=== PATIENT | female | born 1990 | race Caucasian/White ===

== ENCOUNTER 2016-10-25 10:36 | Day surgery (SDC) | payer OTHER, MEDICARE, MEDICAID ==
[~2016-10-25 10:36] MED LIST: ACETAMINOPHEN 1000MG/100 ML PREMIX IV ONE; FAMOTIDINE 20MG TABLET PO ONE; MECLIZINE 25 MG TABLET PO ONE; METOCLOPRAMIDE 10 MG TABLET PO ONE
[2016-10-25] MEDS ORDERED: BUPIVACAINE 0.25% W/EPI MPF 30ML VIAL IVP ONE (15:23)
[2016-10-25] MEDS ORDERED: HYDROMORPHONE HCL 2 MG/ML VIAL IV ONE ×2 (15:23→15:32)
[2016-10-25] MEDS ORDERED: HYDROCODONE/APAP 5/325MG TABLET PO ONE (15:23)
[2016-10-25] MEDS ORDERED: PROPOFOL 10 MG/ML VIAL IV ONE (15:32)
[2016-10-25] MEDS ORDERED: LIDOCAINE 2% MDV (20MG/ML) 20ML VIAL IV ONE (15:32)
[2016-10-25] MEDS ORDERED: KETOROLAC 30 MG/ML VIAL IVP ONE (15:32)
[2016-10-25] MEDS ORDERED: ROCURONIUM BROMIDE 50MG/5ML VIAL IV ONE (15:32)
[2016-10-25] MEDS ORDERED: FENTANYL PF 100MCG/2ML VIAL IV ONE (15:32)
[2016-10-25] MEDS ORDERED: MIDAZOLAM HCL 2MG/2ML VIAL IV ONE (15:32)
[2016-10-25] MEDS ORDERED: SUCCINYLCHOLINE 20 MG/ML 10ML IVP ONE (15:32)
[2016-10-25] MEDS ORDERED: NEOSTIGMINE 1 MG/1 ML,10ML VIAL IV ONE (15:32)
[2016-10-25] MEDS ORDERED: GLYCOPYRROLATE 0.2 MG/ML ML IV ONE (15:32)
[2016-10-25] MEDS ORDERED: DEXAMETHASONE 4 MG/ML 1ML VIAL IVP ONE (15:32)
[2016-10-25] MEDS ORDERED: ONDANSETRON HCL IV 4 MG/2 ML VIAL IVP ONE (15:32)
--- NOTE | 2016-10-25 16:07 | Operative Note ---
DATE OF PROCEDURE: 10/25/2016. SURGEON: Corwin Goins D.O. REFERRING PHYSICIAN: Becky Elam M.D. PREOPERATIVE DIAGNOSIS: CHRONIC RIGHT UPPER QUADRANT PAIN WITH GALLBLADDER SLUDGE. POSTOPERATIVE DIAGNOSIS: CHRONIC RIGHT UPPER QUADRANT PAIN WITH GALLBLADDER SLUDGE. PROCEDURE: Laparoscopic cholecystectomy. INDICATIONS: The patient is a 25-year-old female who presented to the clinic with her family regarding ongoing right subcostal postprandial pain. She states that she has been dealing with this for quite some time. She did undergo an ultrasound as well as upper endoscopy. The ultrasound revealed gallbladder sludge and no evidence of acute cholecystitis. She felt this was getting worse and had extreme fatty food intolerance and nausea. She came in inquiring about cholecystectomy. I let her know that I could not guarantee results. Part of what she is experiencing could be some biliary colic, but this could be multi-factorial as well. I gave her options of cholecystectomy versus ongoing medical management. She desired surgical intervention. Her risks include but are not limited to bleeding, infection, ductal injury, possible conversion to open, postoperative bile leak, and nonresolution of her symptoms. She understood this fully. Therefore, consent was signed and questions were answered. DESCRIPTION OF PROCEDURE: She was taken to the operating room and was placed in the supine position. General anesthesia was administered per the Department of Anesthesia. The patient's abdomen was prepped and draped in the usual fashion. The infraumbilical region was anesthetized with a total of 3.0 mL of 0.25% Sensorcaine with epinephrine. A 2.0-cm infraumbilical incision was made. This was carried down to the anterior rectus fascia. This was incised. Ty clamps were placed, and the fascial edges were brought up into the wound. Stay sutures of 0 Vicryl were placed. The posterior rectus sheath was identified and incised. The peritoneal cavity was entered bluntly. At this time a 10-mm blunt Freed port was placed and adequate pneumoperitoneum was established. Under direct visualization, an additional 5.0-mm epigastric and two 5.0-mm right subcostal ports were placed. Gentle examination was done. Both lobes of the liver were smooth and glistening. There was no obvious inflammation around the gallbladder. There were no adhesions. On external examination the small and large bowel appeared normal. At this time the gallbladder was retracted in a cephalad and lateral direction opening up the angle of Calot. The hepatocystic triangle was thoroughly dissected out. Due to the paucity of visceral fat, I could clearly see the common bile duct medial. The cystic duct and the cystic artery were completely dissected out in a 360-degree fashion. There was no aberrant anatomy. No posterior ductal structures. Each one was doubly clipped and cut in a standard fashion. The gallbladder was then taken off of the liver bed with the [place] Harmonic. The gallbladder might have been a bit thickened in the mid portion. At this time, this was extracted infraumbilically. The right upper quadrant was then rechecked and was found to be hemostatic. No bleeding, no bile leak, and no bowel injury were noted. The patient was leveled out and pneumoperitoneum was released. All ports were removed. The fascia was closed with 0 Vicryl in [id number] fashion. The skin and all four ports were closed with 4-0 Vicryl. She was taken to Recovery in satisfactory condition. Final pathology is pending. FINDINGS AT THE TIME OF SURGERY: CHRONIC CHOLECYSTITIS. Corwin Goins D.O. Date Time cc: Becky Elam M.D. JOB NUMBER: [id number] MTDD
== END 2016-10-25 14:47 | disposition home or self-care (01) ==
LOC: SUR 10:36
PROVIDERS: ATTEND Surgery
DX: K80.10 Calculus of gallbladder with chronic cholecystitis without obstruction (principal); Q79.6 Ehlers-Danlos syndromes; J45.909 Unspecified asthma, uncomplicated; I95.9 Hypotension, unspecified
CPT/HCPCS: 47562; 00790; 84703; J1885; J2405; J3010; J1170; J0330; J2710

== ENCOUNTER 2016-11-04 21:36 | Emergency (ER) | payer OTHER, MEDICARE, MEDICAID ==
[2016-11-04] MEDS ORDERED: ONDANSETRON 4 MG ODT TABLET SL ONE (22:14)
--- NOTE | 2016-11-04 22:14 | Emergency Department Record ---
History of Present Illness - General Chief Complaint: Wound, check Stated Complaint: DOG JUMPED ON INCISIONS Time Seen by Provider: 11/04/16 22:08 Source: Patient - History of Present Illness Initial Comments: The patient states that she had a lap gavi on 10-25-[address] Goins. Just over 24 hours ago her 45 pound dog jumped right on the surgical incision area. Shortly afterwards her abdomen began hurting more. When she went to bed 2 hours go, she took a norco which helped her at the time. Throughout the day earlier today she was in in more pain than usual. When her dad found out about this tonight, he was concerned and brought her here. She has taken a norco about 2 hours ago and states she feels better, but is still in more pain than she has been prior to the dog jumping on her stomach. She states she is nauseated but has not vomited. She is passing gas and denies any distention in her abdomen. She states she was due to be recheck by Dr. Goins on the . Onset/Timin -: Hour(s) Initial Visit For: Other Returns Today for: Other Symptoms Since Prior Visit: Worsening pain Associated Symptoms: None - Related Data Home Medications Medication Instructions Recorded Confirmed Last Taken Fludrocortisone Acetate 0.1 mg PO QHS 07/29/14 11/04/16 08/29/16 [Fludrocortisone Acetate] Gabapentin [Gabapentin] 1 - 2 cap PO QHS 07/29/14 11/04/16 1 Day Ago Ondansetron [Zofran Odt] 4 mg PO Q6HR PRN 07/29/14 11/04/16 1 Day Ago Norethindrone [Radha] 0.35 mg PO DAILY 10/08/14 11/04/16 08/30/16 Diclofenac Sodium [Pennsaid] 112 gm TP DAILY 08/29/16 11/04/16 08/30/16 Tramadol HCl 50 mg PO Q6H 08/29/16 11/04/16 Unknown Hydrocodone/Acetaminophen 1 - 2 tab PO Q6H PRN 11/04/16 11/04/16 Unknown [Hydrocodon-Acetaminophen 5-325] Previous Rx's Medication Instructions Recorded Levalbuterol Tartrate [Xopenex Hfa] 15 gm IH Q8HR PRN #1 inh 01/08/15 Hydrocodone/Acetaminophen [[place] 1 tab PO Q8H PRN #6 tab 11/04/16 5mg/325mg] Allergies Allergy/AdvReac Type Severity Reaction Status Date / Time gluten Allergy Severe ABDOMINAL Verified 08/30/16 15:35 PAIN shellfish derived Allergy Severe ANAPHYLAXIS Verified 08/30/16 15:35 povidone-iodine Allergy Intermediate itchy rash Unverified 10/14/16 13:32 [From Betadine] with blisters soap [From Betadine] Allergy Intermediate itchy rash Unverified 10/14/16 13:32 with blisters soy Allergy Intermediate HIVES Verified 08/30/16 15:35 bamboo Allergy Mild BLISTERS Verified 08/30/16 15:35 Latex, Natural Rubber Allergy Mild BLISTERS Verified 08/30/16 15:35 nickel [Nickel] Allergy Mild BLISTERS Verified 08/30/16 15:35 albuterol AdvReac Severe TACHYCARDIA Verified 08/30/16 15:35 Travel Screening - Travel/Exposure Within Last 30 Days Have you traveled within the last 30 days?: No Review of Systems Reviewed: No additional complaints except as noted below Constitutional: Reports: As per HPI. Denies: Chills, Fever, Malaise, Night sweats, Weakness, Weight change Eyes: Reports: As per HPI. Denies: Eye discharge, Eye pain, Photophobia, Vision change ENT: Reports: As per HPI. Denies: Congestion, Dental pain, Ear pain, Epistaxis , Hearing loss, Throat pain Respiratory: Reports: As per HPI. Denies: Cough, Dyspnea, Hemoptysis, Stridor, Wheezes Cardiovascular: Reports: As per HPI. Denies: Arrhythmia, Chest pain, Dyspnea on exertion, Edema, Murmurs, Orthopnea, Palpitations, Paroxysmal nocturnal dyspnea, Rheumatic Fever, Syncope Endocrine: Reports: As per HPI. Denies: Fatigue, Heat or cold intolerance, Polydipsia, Polyuria Gastrointestinal: Reports: As per HPI. Denies: Abdominal pain, Constipation, Diarrhea, Hematemesis, Hematochezia, Melena, Nausea, Vomiting Genitourinary: Reports: As per HPI. Denies: Abnormal menses, Discharge, Dyspareunia, Dysuria, Frequency, Hematuria, Incontinence, Retention, Urgency Musculoskeletal: Reports: As per HPI. Denies: Arthralgia, Back pain, Gout, Joint swelling, Myalgia, Neck pain Skin: Reports: As per HPI. Denies: Bruising, Change in color, Change in hair/ nails, Lesions, Pruritus, Rash Neurological: Reports: As per HPI. Denies: Abnormal gait, Confusion, Headache, Numbness, Paresthesias, Seizure, Tingling, Tremors, Vertigo, Weakness Psychiatric: Reports: As per HPI. Denies: Anxiety, Auditory hallucinations, Depression, Homicidal thoughts, Suicidal thoughts, Visual hallucinations Hematological/Lymphatic: Reports: As per HPI. 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 - GI Hx GI Disorders: Yes Hx Abdominal Pain: Yes Hx Reflux: Yes Hx Nausea/Vomiting: Yes - Hx Genitourinary Disorders: Yes Hx Kidney Stones: Yes - ENDOCRINE Hx Endocrine Disorders: No - MUSCULOSKELETAL Hx Musculoskeletal Disorders: Yes Comment:: jc-danlos collagen disorder - PSYCH Hx Psych Problems: No - HEMATOLOGY/ONCOLOGY Hx Hematology/Oncology Disorders: Yes Hx Anemia: Yes (controlled) Comment:: jc danlos: collagen disorder Family Medical History Any Significant Family History?: Yes Hx Cancer: Grandparents Physical Exam - General General Appearance: Alert, Oriented x3, Cooperative, No acute distress - Head Head exam: Normal inspection - Eye Eye exam: Normal appearance, PERRL Pupils: Normal accommodation - ENT ENT exam: Normal exam, Mucous membranes moist, Normal external ear exam, Normal orophraynx, TM's normal bilaterally Ear exam: Normal external inspection. negative: External canal tenderness Nasal Exam: Normal inspection. negative: Discharge, Sinus tenderness Mouth exam: Normal external inspection, Tongue normal Teeth exam: Normal inspection. negative: Dental caries Throat exam: Normal inspection. negative: Tonsillar erythema, Tonsillar exudate - Neck Neck exam: Normal inspection, Full ROM. negative: Tenderness - Respiratory Respiratory exam: Normal lung sounds bilaterally. negative: Respiratory distress - Cardiovascular Cardiovascular Exam: Regular rate, Normal rhythm, Normal heart sounds - GI/Abdominal GI/Abdominal exam: Soft, Normal bowel sounds, Tenderness (tenderness mostly at periumbilical region. Incisions clean and dry and steri-stripped.). negative: Distended, Rebound, Rigid - Rectal Rectal exam: Deferred - exam: Deferred - Extremities Extremities exam: Normal inspection, Full ROM, Normal capillary refill. negative: Tenderness - Back Back exam: Reports: Normal inspection, Full ROM. Denies: Muscle spasm, Rash noted, Tenderness - Neurological Neurological exam: Alert, Normal gait, Oriented X3, Reflexes normal - Psychiatric Psychiatric exam: Normal affect, Normal mood - Skin Skin exam: Dry, Intact, Normal color, Warm Course Vital Signs 11/04/16 21:46 Temperature 97.9 F Pulse Rate [ 104 H Pulse Ox Probe] Respiratory 18 Rate Blood Pressure 115/73 [Left Arm] Pulse Ox 100 - Reevaluation(s) Reevaluation #1: Discussed case with Dr. Goins who is familiar with patient and her family. He recommends keeping her next week appointment, giving her a few norco and have her transition into motrin when possible. 11/04/16 23:47 Medical Decision Making - Management Options MDM Management: No Additional Work-up Planned - Data Complexity MDM Data: Labs Ordered and/or Reviewed - Lab Data Result diagrams: 11/04/16 22:52 11/04/16 22:52 Disposition Disposition: Discharge Clinical Impression: Postoperative abdominal pain Disposition: Home, Self-Care Condition: (1) Good Instructions: Wound Healing and Your Diet (ED) Additional Instructions: Take norco as directed for severe pain. Motrin as directed for mild to moderate pain. Follow up with Dr. Goins as previously arranged next week. Prescriptions: Hydrocodone/Acetaminophen [[place] 5mg/325mg] 1 tab PO Q8H PRN #6 tab PRN Reason: Pain - General Forms: Patient Portal Access
[2016-11-04 23:10] LABS: BASO % 0.2 % (0-6); GRAN % 59.5 % (47-80); HEMATOCRIT 36.2 % (35.0-47.0); HEMOGLOBIN 12.3 gm/dl (11.6-16.0); LYMPH % 29.8 % (16-45); MEAN CORPUSCULAR HEMOGLOBIN 29.6 pg (27-33); MEAN PLATELET VOLUME 10.6 fl (7.4-10.4); MONO % 7.5 % (0-9); PLATELET COUNT 226 K/uL (130-400); RED BLOOD COUNT 4.16 M/uL (3.80-5.40); RED CELL DISTRIBUTION WIDTH 13.9 % (11.5-14.5); WHITE BLOOD COUNT W/O DIFF 5.3 K/uL (4.2-12.2)
[2016-11-04 23:25] LABS: ANION GAP 15.6 (7-16); BLOOD UREA NITROGEN 12 mg/dL (7-17); CARBON DIOXIDE 25.4 mmol/L (22-30); CREATININE 0.6 mg/dL (0.52-1.04); EST GLOMERULAR FILTRATION RATE > 60 ml/min; GLUCOSE,RANDOM 93 mg/dL (70-110)
[2016-11-04 23:26] LABS: ALBUMIN 4.4 gm/dL (3.5-5.0); BILIRUBIN,TOTAL 0.32 mg/dL (0.2-1.3); TOTAL PROTEIN 6.9 gm/dL (6.3-8.2)
[2016-11-04] MEDS ORDERED: HYDROCODONE/APAP 5/325MG TABLET PO ONE (23:49)
== END 2016-11-05 00:05 | disposition home or self-care (01) ==
LOC: ER 21:36
DX: G89.18 Other acute postprocedural pain (principal); R10.33 Periumbilical pain; R11.0 Nausea; Z90.49 Acquired absence of other specified parts of digestive tract
CPT/HCPCS: 80048; 80076; 83690; 85025; 99283

== ENCOUNTER 2019-03-04 00:36 | Emergency (ER) | payer BC, MEDICARE, MEDICAID ==
--- NOTE | 2019-03-04 00:43 | Emergency Department Record ---
History of Present Illness - General Chief complaint: Pain Stated complaint: PAIN Time Seen by Provider: 03/04/19 00:40 Source: Patient - History of Present Illness Initial comments: The patient had rods removed from her foot due to adverse reaction to them on 02-26-19 and was given Percocet # 30 1 four times daily, She is here for more medications for her pain because she ran out of the percocet. (Four pills daily should have completed on 03-06-19). She has multiple medical problems and multple allergies. She also complains of dysuria and wishes her urine checked for infection. She is nauseated due to pain. No fevers,chills, or flank pain or vomiting. - Related Data Home Medications Medication Instructions Recorded Confirmed Last Taken Bisoprolol Fumarate 10 mg PO DAILY 03/04/19 03/04/19 03/04/19 Cyanocobalamin (Vitamin B-12) 2,500 mcg PO ASDIR 03/04/19 03/04/19 Unknown [Vitamin B12] Diphenhydramine HCl [Benadryl] 50 mg PO Q4HR 03/04/19 03/04/19 03/04/19 Fludrocortisone Acetate 0.1 mg PO DAILY 03/04/19 03/04/19 03/04/19 Levalbuterol Tartrate [Xopenex Hfa] 15 gm IH ASDIR PRN 03/04/19 03/04/19 Unknown Lorazepam [Ativan] 1 mg PO DAILY 03/04/19 03/04/19 03/03/19 Oxycodone HCl/Acetaminophen 1 tab PO Q6HR PRN 03/04/19 03/04/19 03/04/19 [Percocet 7.5mg/325mg] Previous Rx's Medication Instructions Recorded Nitrofurantoin Monohyd/M-Cryst 100 mg PO BID #19 capsule 03/04/19 [Macrobid 100 mg Capsule] Allergies Allergy/AdvReac Type Severity Reaction Status Date / Time banana Allergy Severe ANAPHYLAXIS Unverified 12/15/18 19:06 bupivacaine HCl Allergy Severe throat Unverified 12/15/18 19:06 [From Marcaine] swelling gluten Allergy Severe ABDOMINAL Unverified 12/15/18 19:06 PAIN propranolol Allergy Severe ANAPHYLAXIS Unverified 12/15/18 19:06 shellfish derived Allergy Severe ANAPHYLAXIS Unverified 12/15/18 19:06 gabapentin [From Neurontin] Allergy Intermediate facial Unverified 12/15/18 19:06 swelling/fevers iodine Allergy Intermediate rash, Unverified 12/15/18 19:06 shortness of breath, flushing povidone-iodine Allergy Intermediate itchy rash Unverified 12/15/18 19:06 [From Betadine] with blisters soap [From Betadine] Allergy Intermediate itchy rash Unverified 12/15/18 19:06 with blisters soy Allergy Intermediate HIVES Unverified 12/15/18 19:06 bamboo Allergy Mild BLISTERS Unverified 12/15/18 19:06 Latex, Natural Rubber Allergy Mild BLISTERS Unverified 12/15/18 19:06 nickel [Nickel] Allergy Mild BLISTERS Unverified 12/15/18 19:06 bupivacaine Allergy unkniwn Unverified 03/04/19 01:15 egg Allergy unknown Unverified 03/04/19 01:15 fish derived Allergy unknown Unverified 03/04/19 01:15 hydrocodone bitartrate Allergy unknown Unverified 03/04/19 01:15 [From [place]] lactase [From Dairy Aid] Allergy unknown Unverified 03/04/19 01:15 maltodextrin Allergy unknown Unverified 03/04/19 01:15 methylprednisolone Allergy unknown Unverified 03/04/19 01:15 midodrine Allergy unknown Unverified 03/04/19 01:15 mold Allergy unknown Unverified 03/04/19 01:15 nebivolol HCl [From Bystolic] Allergy unknown Unverified 03/04/19 01:15 polyester fibers Allergy unknown Unverified 03/04/19 01:15 ranitidine Allergy unknown Unverified 03/04/19 01:15 tramadol Allergy unknown Unverified 03/04/19 01:15 wheat Allergy unknown Unverified 03/04/19 01:15 wheat dextrin Allergy unknown Unverified 03/04/19 01:15 paper tape Allergy Intermediate rash/breathing Uncoded 05/16/17 20:31 issues colanor Allergy unknown Uncoded 03/04/19 01:15 polymer blend clip Allergy unknown Uncoded 03/04/19 01:15 soya lecithin Allergy unknown Uncoded 03/04/19 01:15 dami control Allergy unknown Uncoded 03/04/19 01:15 Review of Systems Reviewed: No additional complaints except as noted below Constitutional: Reports: As per HPI. Denies: Chills, Fever, Malaise, Night sweats, Weakness, Weight change Eyes: Reports: As per HPI. Denies: Eye discharge, Eye pain, Photophobia, Vision change ENT: Reports: As per HPI. Denies: Congestion, Dental pain, Ear pain, Epistaxis, Hearing loss, Throat pain Respiratory: Reports: As per HPI. Denies: Cough, Dyspnea, Hemoptysis, Stridor, Wheezes Cardiovascular: Reports: As per HPI. Denies: Arrhythmia, Chest pain, Dyspnea on exertion, Edema, Murmurs, Orthopnea, Palpitations, Paroxysmal nocturnal dyspnea, Rheumatic Fever, Syncope Endocrine: Reports: As per HPI. Denies: Fatigue, Heat or cold intolerance, Polydipsia, Polyuria Gastrointestinal: Reports: As per HPI. Denies: Abdominal pain, Constipation, Diarrhea, Hematemesis, Hematochezia, Melena, Nausea, Vomiting Genitourinary: Reports: As per HPI. Denies: Abnormal menses, Discharge, Dyspareunia, Dysuria, Frequency, Hematuria, Incontinence, Retention, Urgency Musculoskeletal: Reports: As per HPI. Denies: Arthralgia, Back pain, Gout, Joint swelling, Myalgia, Neck pain Skin: Reports: As per HPI. Denies: Bruising, Change in color, Change in hair/nails, Lesions, Pruritus, Rash Neurological: Reports: As per HPI. Denies: Abnormal gait, Confusion, Headache, Numbness, Paresthesias, Seizure, Tingling, Tremors, Vertigo, Weakness Psychiatric: Reports: As per HPI. Denies: Anxiety, Auditory hallucinations, Depression, Homicidal thoughts, Suicidal thoughts, Visual hallucinations Hematological/Lymphatic: Reports: As per HPI. 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 - GI Hx GI Disorders: Yes Hx Abdominal Pain: Yes Hx Reflux: Yes Hx Nausea/Vomiting: Yes - Hx Genitourinary Disorders: Yes Hx Kidney Stones: Yes - ENDOCRINE Hx Endocrine Disorders: No - MUSCULOSKELETAL Hx Musculoskeletal Disorders: Yes Comment:: dwight collagen disorder - PSYCH Hx Psych Problems: No - HEMATOLOGY/ONCOLOGY Hx Hematology/Oncology Disorders: Yes Hx Anemia: Yes (controlled) Comment:: jc danlos: collagen disorder Family Medical History Hx Cancer: Grandparents Physical Exam - General General Appearance: Alert, Oriented x3, Cooperative, No acute distress - Head Head exam: Normal inspection - Eye Eye exam: Normal appearance, PERRL, EOMI Pupils: Normal accommodation - ENT ENT exam: Normal exam, Mucous membranes moist, Normal external ear exam, Normal orophraynx, TM's normal bilaterally Ear exam: Normal external inspection. negative: External canal tenderness Nasal Exam: Normal inspection. negative: Discharge, Sinus tenderness Mouth exam: Normal external inspection, Tongue normal Teeth exam: Normal inspection. negative: Dental caries Throat exam: Normal inspection. negative: Tonsillar erythema, Tonsillar exudate - Neck Neck exam: Normal inspection, Full ROM. negative: Lymphadenopathy, Meningismus, Tenderness - Respiratory Respiratory exam: Normal lung sounds bilaterally. negative: Respiratory distress - Cardiovascular Cardiovascular Exam: Regular rate, Normal rhythm, Normal heart sounds - GI/Abdominal GI/Abdominal exam: Soft, Normal bowel sounds. negative: Tenderness - Rectal Rectal exam: Deferred - exam: Deferred - Extremities Extremities exam: Normal inspection, Full ROM, Normal capillary refill, Other (Post op cast on right foot, toes pink warm and dry without swelling. ). negative: Tenderness - Back Back exam: Reports: Normal inspection, Full ROM. Denies: Muscle spasm, Rash noted, Tenderness - Neurological Neurological exam: Alert, CN II-XII intact, Normal gait, Oriented X3, Reflexes normal. negative: Motor sensory deficit - Psychiatric Psychiatric exam: Normal affect, Normal mood - Skin Skin exam: Dry, Intact, Normal color, Warm Course Vital Signs 03/04/19 00:36 Temperature 97.7 F Pulse Rate [ 96 H Pulse Ox Probe] Respiratory 20 Rate Blood Pressure 124/96 [Left Arm] Pulse Ox 100 - Reevaluation(s) Reevaluation #1: Patient stats macrobid worked for her prior UTI. She agrees to take nonprescription OTC pain medications as directed if possible. 03/04/19 01:48 Medical Decision Making - Management Options MDM Management: No Additional Work-up Planned - Data Complexity MDM Data: Labs Ordered and/or Reviewed (UA:21-35 WBC, few bacteria, moderate LE+) Disposition Disposition: Discharge Clinical Impression: Post-op pain UTI (urinary tract infection) Qualifiers: Urinary tract infection type: acute cystitis Hematuria presence: without hematuria Qualified Code(s): N30.00 - Acute cystitis without hematuria Disposition: Home, Self-Care Condition: (1) Good Instructions: Pain Management in the Elderly (ED), Urinary Tract Infection in Women (ED) Additional Instructions: Take Macrobid as directed until gone. Wean your pain medicine down to tylenol alternated with ibuprofen or naproxyn, or tylenol #3. Follow up with your Orthopedist this week as needed for pain control as needed. Prescriptions: Nitrofurantoin Monohyd/M-Cryst [Macrobid 100 mg Capsule] 100 mg PO BID #19 capsule Forms: Patient Portal Access Quality - Quality Measures Quality Measures: N/A - Blood Pressure Screening Does Patient Have Any of the Following: No Blood Pressure Classification: Hypertensive Reading Systolic Measurement: 124 Diastolic Measurement: 96 Screening for High Blood Pressure: < Normal BP, F/U Not Required > [G8783]
[2019-03-04 01:25] LABS: URINE APPEARANCE CLOUDY; URINE BILIRUBIN NEGATIVE (NEGATIVE); URINE BLOOD SMALL (NEGATIVE); URINE COLOR YELLOW; URINE GLUCOSE (UA) NEGATIVE (NEGATIVE); URINE KETONE NEGATIVE (NEGATIVE); URINE LEUKOCYTE ESTERASE MODERATE (NEGATIVE); URINE NITRITE NEGATIVE (NEGATIVE); URINE PROTEIN NEGATIVE (NEGATIVE); URINE UROBILINOGEN 0.2 E.U./dL (0.20 - 1.00)
[2019-03-04 01:31] LABS: URINE BACTERIA FEW; URINE RBC 0 - 2 (NONE SEEN); URINE WBC 21 - 35 (0-2/hpf)
[2019-03-04] MEDS ORDERED: NITROFURANTOIN MONO 100 MG CAPSULE PO ONE (01:44)
[2019-03-04] MEDS ORDERED: OXYCODONE HCL/APAP 5MG/325MG TABLET PO ONE (01:45)
== END 2019-03-04 02:01 | disposition home or self-care (01) ==
LOC: ER 00:36
DX: G89.18 Other acute postprocedural pain (principal); M79.671 Pain in right foot; N30.00 Acute cystitis without hematuria; R11.0 Nausea
CPT/HCPCS: 81001; 99283

== ENCOUNTER 2019-05-20 14:15 | Emergency (ER) | payer BC, MEDICARE, MEDICAID ==
[2019-05-20] MEDS ORDERED: 0.9 % SODIUM CHLORIDE 1,000 ML BAG IV ONE (14:36)
[2019-05-20] MEDS ORDERED: ONDANSETRON HCL IV 4 MG/2 ML VIAL IVP ONE (14:36)
--- NOTE | 2019-05-20 14:39 | Emergency Department Record ---
History of Present Illness - General Chief Complaint: Fever Stated Complaint: FEVER,BACK PAIN,PAINFULLY URINATION,NAKUSEA Time Seen by Provider: 05/20/19 14:23 Source: Patient Mode of Arrival: Ambulatory Limitations: No limitations - History of Present Illness Initial Comments: The patient is here due to not feeling well for a month. She has had mild dys uria for about a month which has worsened over the last week. The patient believes she has had a fever at night the last few nights and is concerned she has a UTI that may be getting to her kidneys. There has been associated nausea but no vomiting or diarrhea. MD Complaint: Malaise Onset/Timin -: Month(s) Maximum Temperature: 99.0 F Temperature Source: Oral Associated Symptoms: Abdominal pain, Nausea - Related Data Home Medications Medication Instructions Recorded Confirmed Last Taken Ondansetron HCl [Zofran] 4 mg PO DAILY 05/20/19 05/20/19 Unknown Oxycodone HCl/Acetaminophen 1 tab PO Q8H PRN 05/20/19 05/20/19 Unknown [Percocet 5mg/325mg] Previous Rx's Medication Instructions Recorded Cephalexin [Keflex] 500 mg PO TID #21 cap 05/20/19 Ondansetron [Zofran Odt] 4 mg SL .Q4-6H PRN #12 tab.rapdis 05/20/19 Allergies Allergy/AdvReac Type Severity Reaction Status Date / Time banana Allergy Severe ANAPHYLAXIS Verified 05/20/19 14:27 bupivacaine HCl Allergy Severe throat Verified 05/20/19 14:27 [From Marcaine] swelling gluten Allergy Severe ABDOMINAL Verified 05/20/19 14:27 PAIN propranolol Allergy Severe ANAPHYLAXIS Verified 05/20/19 14:27 shellfish derived Allergy Severe ANAPHYLAXIS Verified 05/20/19 14:27 gabapentin [From Neurontin] Allergy Intermediate facial Verified 05/20/19 14:27 swelling/fevers iodine Allergy Intermediate rash, Verified 05/20/19 14:27 shortness of breath, flushing povidone-iodine Allergy Intermediate itchy rash Verified 05/20/19 14:27 [From Betadine] with blisters soap [From Betadine] Allergy Intermediate itchy rash Verified 05/20/19 14:27 with blisters soy Allergy Intermediate HIVES Verified 05/20/19 14:27 bamboo Allergy Mild BLISTERS Verified 05/20/19 14:27 Latex, Natural Rubber Allergy Mild BLISTERS Verified 05/20/19 14:27 nickel [Nickel] Allergy Mild BLISTERS Verified 05/20/19 14:27 bupivacaine Allergy unkniwn Verified 05/20/19 14:27 egg Allergy unknown Verified 05/20/19 14:27 fish derived Allergy unknown Verified 05/20/19 14:27 hydrocodone bitartrate Allergy unknown Verified 05/20/19 14:27 [From [place]] lactase [From Dairy Aid] Allergy unknown Verified 05/20/19 14:27 maltodextrin Allergy unknown Verified 05/20/19 14:27 methylprednisolone Allergy unknown Verified 05/20/19 14:27 midodrine Allergy unknown Verified 05/20/19 14:27 mold Allergy unknown Verified 05/20/19 14:27 nebivolol HCl [From Bystolic] Allergy unknown Verified 05/20/19 14:27 polyester fibers Allergy unknown Verified 05/20/19 14:27 ranitidine Allergy unknown Verified 05/20/19 14:27 tramadol Allergy unknown Verified 05/20/19 14:27 wheat Allergy unknown Verified 05/20/19 14:27 wheat dextrin Allergy unknown Verified 05/20/19 14:27 nitrofurantoin AdvReac stomach Verified 05/20/19 14:29 [From Macrobid] cramps, vomiting paper tape Allergy Intermediate rash/breathing Uncoded 05/16/17 20:31 issues colanor Allergy unknown Uncoded 03/04/19 01:15 polymer blend clip Allergy unknown Uncoded 03/04/19 01:15 soya lecithin Allergy unknown Uncoded 03/04/19 01:15 dami control Allergy unknown Uncoded 03/04/19 01:15 Travel Screening - Travel/Exposure Within Last 30 Days Have you traveled within the last 30 days?: No Review of Systems Constitutional: Reports: Fever, Malaise. Denies: Chills Eyes: Denies: Eye discharge ENT: Denies: Congestion Respiratory: Denies: Cough, Dyspnea Cardiovascular: Denies: Arrhythmia Endocrine: Reports: Fatigue Gastrointestinal: Reports: Nausea. Denies: Diarrhea, Vomiting Genitourinary: Reports: Dysuria Musculoskeletal: Reports: Back pain. 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 - GI Hx GI Disorders: Yes Hx Abdominal Pain: Yes Hx Reflux: Yes Hx Nausea/Vomiting: Yes - Hx Genitourinary Disorders: Yes Hx Kidney Stones: Yes - ENDOCRINE Hx Endocrine Disorders: No Hx Thyroid Disease: Yes - MUSCULOSKELETAL Hx Musculoskeletal Disorders: Yes Comment:: alberto-danlos collagen disorder - PSYCH Hx Psych Problems: No - HEMATOLOGY/ONCOLOGY Hx Hematology/Oncology Disorders: Yes Hx Anemia: Yes (controlled) Comment:: alberto danlos: collagen disorder Family Medical History Any Significant Family History?: Yes Hx Cancer: Grandparents Physical Exam - General General Appearance: Alert, Oriented x3, Cooperative, No acute distress - Head Head exam: Atraumatic, Normocephalic, Normal inspection - Eye Eye exam: Normal appearance - Neck Neck exam: Normal inspection, Full ROM. negative: Tenderness - Respiratory Respiratory exam: Normal lung sounds bilaterally. negative: Respiratory distress - Cardiovascular Cardiovascular Exam: Regular rate, Normal rhythm, Normal heart sounds - GI/Abdominal GI/Abdominal exam: Soft, Normal bowel sounds. negative: Tenderness - Extremities Extremities exam: Full ROM, Normal capillary refill. 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 Denies: CVA tenderness (R), CVA tender ness (L) - Neurological Neurological exam: Alert. negative: Motor sensory deficit - Psychiatric Psychiatric exam: negative: Anxious - Skin Skin exam: negative: Rash Course Vital Signs 05/20/19 14:22 Temperature 97.5 F L Pulse Rate 98 H Respiratory 18 Rate Blood Pressure 99/66 Pulse Ox 100 - Reevaluation(s) Reevaluation #1: The patient is doing well at this time and is having no nausea or vomiting after taking the Keflex. She did just tell me she is having mild FÁTIMA and feels like her lungs are "tight". She denies any anterior chest pain or palpitations or SOB. The patient does state she gets these issues from time to time with her asthma and when she has an infection like she has now which causes her lungs to be inflamed. I did again listen to her lungs and they are very clear and she has a RR of 16 and a RA biox of 100%. I did recommend an EKG, CXR, D-dimer and Xopenox treatment to make sure there are no acute issues going on. 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 I explained to her that by not doing those tests we could be missing a heart or lung issue and she is aware and accepts the risks. 05/20/19 16:18 Reevaluation #2: The patient is doing very well at this time and is resting comfortably in no distress and presently texting on the phone. I did discuss the CT report and the anemia with the patient. She states she has had a very poor diet recently and believes that is the cause. There has been no rectal or vaginal bleeding to cause the anemia. She is to restart her Iron pills and to discuss further evaluation with Dr. Gupta. 05/20/19 16:35 Medical Decision Making - Data Complexity MDM Data: Labs Ordered and/or Reviewed, X-Ray Ordered and/or Reviewed - Lab Data Result diagrams: 05/20/19 14:40 05/20/19 14:40 - Radiology Data Radiology results: Report reviewed (CT: Neg for any acute changes, significant constipation per Rad.) Disposition Disposition: Discharge Clinical Impression: UTI (urinary tract infection) Qualifiers: Urinary tract infection type: acute cystitis Hematuria presence: without hematuria Qualified Code(s): N30.00 - Acute cystitis without hematuria Disposition: Home, Self-Care Condition: (2) Stable Instructions: Urinary Tract Infection in Women (ED) Additional Instructions: Please take the Keflex as directed and also the Zofran ODT if needed. Please see Dr. Gupta for recheck and to have the anemia evaluated further. Please also restart the iron pills with the Zofran. Return to the ER for any worsening symptoms, pain, fever, or vomiting. Prescriptions: Cephalexin [Keflex] 500 mg PO TID #21 cap Ondansetron [Zofran Odt] 4 mg SL .Q4-6H PRN #12 tab.rapdis PRN Reason: Nausea Forms: Patient Portal Access Time of Disposition: 16:33 Quality - Quality Measures Quality Measures: N/A - Blood Pressure Screening View Details: Yes Does Patient Have Any of the Following: No Blood Pressure Classification: Normal BP Reading Systolic Measurement: 104 Diastolic Measurement: 71 Screening for High Blood Pressure: < Normal BP, F/U Not Required > [G8783]
[2019-05-20 14:53] LABS: ABSOLUTE NEUTROPHIL COUNT 3.53; BASO % 0.5 % (0-6); EOS % 3.6 % (0-6); GRAN % 60.3 % (47-80); HEMATOCRIT 27.8 % (35.0-47.0); HEMOGLOBIN 8.2 gm/dl (11.6-16.0); LYMPH % 25.3 % (16-45); MEAN CORPUSCULAR HEMOGLOBIN 23.9 pg (27-33); MEAN CORPUSCULAR HGB CONC 29.5 g/dl (32-36); MEAN PLATELET VOLUME 9.3 fl (7.4-10.4); MONO % 10.3 % (0-9); PLATELET COUNT 336 K/uL (130-400); RED BLOOD COUNT 3.43 M/uL (3.80-5.40); RED CELL DISTRIBUTION WIDTH 13.5 % (11.5-14.5); URINE APPEARANCE CLEAR; URINE BILIRUBIN NEGATIVE (NEGATIVE); URINE BLOOD NEGATIVE (NEGATIVE); URINE COLOR YELLOW; URINE GLUCOSE (UA) NEGATIVE (NEGATIVE); URINE KETONE NEGATIVE (NEGATIVE); URINE LEUKOCYTE ESTERASE SMALL (NEGATIVE); URINE NITRITE NEGATIVE (NEGATIVE); URINE PROTEIN NEGATIVE (NEGATIVE); URINE UROBILINOGEN 0.2 E.U./dL (0.20 - 1.00); WHITE BLOOD COUNT W/O DIFF 5.9 K/uL (4.2-12.2)
[2019-05-20 14:55] LABS: HCG,QUALITATIVE URINE NEGATIVE (NEGATIVE)
[2019-05-20 15:02] LABS: URINE BACTERIA 1+; URINE EPITHELIAL CELLS 0 - 2 (FEW); URINE RBC 0 - 2 (NONE SEEN); URINE WBC 16 - 20 (0-2/hpf)
[2019-05-20 15:05] LABS: BLOOD UREA NITROGEN 11 mg/dL (6-20); CREATININE 0.5 mg/dL (0.5-0.9); EST GLOMERULAR FILTRATION RATE > 60 mL/min
[2019-05-20 15:08] LABS: GLUCOSE,RANDOM 80 mg/dL (74-109)
[2019-05-20] MEDS ORDERED: CEPHALEXIN 500 MG CAPSULE PO STA (15:59)
[2019-05-20] MEDS ORDERED: LEVALBUTEROL HCL 1.25 MG/3 ML INH ONE (16:13)
--- NOTE | 2019-05-21 10:09 | CT SCAN REPORT ---
EXAM: CT SCAN OF THE ABDOMEN AND PELVIS WITHOUT CONTRAST HISTORY: PAIN. TECHNIQUE: Noncontrast CT images are obtained from the dome of the diaphragm to the symphysis pubis. FINDINGS: The liver, spleen, kidneys, and adrenal glands are free of soft tissue mass. Lack of intravenous contrast slightly limits sensitivity for masses in the solid organs. Extrarenal pelves are present bilaterally, but there is no ureteral distention or ureteral calculus. The stomach and small bowel are unremarkable. There is pronounced constipation with stool filling the colon from rectum to cecum. There is no ascites, free air or mesenteric inflammation. IMPRESSION: THE PRINCIPAL ABNORMALITY IS SIGNIFICANT CONSTIPATION. NO ACUTE INTRAABDOMINAL INFLAMMATORY PROCESS IS NOTED. JOB NUMBER: [id number] [facility]
== END 2019-05-20 16:41 | disposition home or self-care (01) ==
LOC: ER 14:15
DX: N30.00 Acute cystitis without hematuria (principal); R50.9 Fever, unspecified; R11.0 Nausea; R06.00 Dyspnea, unspecified; K59.00 Constipation, unspecified; Q79.6 Ehlers-Danlos syndromes
CPT/HCPCS: 74176; 80048; 81001; 81025; 85025; 96361; 96374; 99284; J2405; J7030

== ENCOUNTER 2019-07-07 17:50 | Emergency (ER) | payer BC, MEDICARE, MEDICAID ==
--- NOTE | 2019-07-07 18:04 | Emergency Department Record ---
History of Present Illness - General Chief complaint: ENT Stated complaint: SINUS INFECTION Time Seen by Provider: 07/07/19 18:02 Source: Patient Mode of Arrival: Ambulatory Limitations: No limitations - History of Present Illness Initial comments: 28 yo female presents to ED for evaluation of intermittent sinus pressure and pain symptoms for the past 2-3 weeks. Patient report mild sore throat symptoms, mild non-productive cough symptoms. Patient denies fevers, chills, or vomiting symptoms. Patient does report history of Alberto-Danlos, CRF, and chronic anemia at her baseline. MD complaint: Other (Sinus pressure, pain) Onset/Timin -: Week(s) Severity: Moderate Quality: Aching Consistency: Constant Improves with: None Worsens with: None Context- Ear: Recent illness Associated Symptoms: Cough, Sore throat - Related Data Previous Rx's Medication Instructions Recorded Cephalexin [Keflex] 500 mg PO TID #21 cap 05/20/19 Ondansetron [Zofran Odt] 4 mg SL .Q4-6H PRN #12 tab.rapdis 05/20/19 Ondansetron [Zofran Odt] 4 mg PO Q8H PRN #15 tab.rapdis 07/07/19 Sulfamethoxazole/Trimethoprim 1 each PO BID #14 tablet 07/07/19 [Bactrim Ds Tablet] Allergies Allergy/AdvReac Type Severity Reaction Status Date / Time banana Allergy Severe ANAPHYLAXIS Verified 05/20/19 14:27 bupivacaine HCl Allergy Severe throat Verified 05/20/19 14:27 [From Marcaine] swelling gluten Allergy Severe ABDOMINAL Verified 05/20/19 14:27 PAIN propranolol Allergy Severe ANAPHYLAXIS Verified 05/20/19 14:27 shellfish derived Allergy Severe ANAPHYLAXIS Verified 05/20/19 14:27 gabapentin [From Neurontin] Allergy Intermediate facial Verified 05/20/19 14:27 swelling/fevers iodine Allergy Intermediate rash, Verified 05/20/19 14:27 shortness of breath, flushing povidone-iodine Allergy Intermediate itchy rash Verified 05/20/19 14:27 [From Betadine] with blisters soap [From Betadine] Allergy Intermediate itchy rash Verified 05/20/19 14:27 with blisters soy Allergy Intermediate HIVES Verified 05/20/19 14:27 bamboo Allergy Mild BLISTERS Verified 05/20/19 14:27 Latex, Natural Rubber Allergy Mild BLISTERS Verified 05/20/19 14:27 nickel [Nickel] Allergy Mild BLISTERS Verified 05/20/19 14:27 bupivacaine Allergy unkniwn Verified 05/20/19 14:27 egg Allergy unknown Verified 05/20/19 14:27 fish derived Allergy unknown Verified 05/20/19 14:27 hydrocodone bitartrate Allergy unknown Verified 05/20/19 14:27 [From [place]] lactase [From Dairy Aid] Allergy unknown Verified 05/20/19 14:27 maltodextrin Allergy unknown Verified 05/20/19 14:27 methylprednisolone Allergy unknown Verified 05/20/19 14:27 midodrine Allergy unknown Verified 05/20/19 14:27 mold Allergy unknown Verified 05/20/19 14:27 nebivolol HCl [From Bystolic] Allergy unknown Verified 05/20/19 14:27 polyester fibers Allergy unknown Verified 05/20/19 14:27 ranitidine Allergy unknown Verified 05/20/19 14:27 tramadol Allergy unknown Verified 05/20/19 14:27 wheat Allergy unknown Verified 05/20/19 14:27 wheat dextrin Allergy unknown Verified 05/20/19 14:27 nitrofurantoin AdvReac stomach Verified 05/20/19 14:29 [From Macrobid] cramps, vomiting paper tape Allergy Intermediate rash/breathing Uncoded 05/16/17 20:31 issues colanor Allergy unknown Uncoded 03/04/19 01:15 polymer blend clip Allergy unknown Uncoded 03/04/19 01:15 soya lecithin Allergy unknown Uncoded 03/04/19 01:15 dami control Allergy unknown Uncoded 03/04/19 01:15 Review of Systems Constitutional: Denies: Chills, Fever, Malaise, Night sweats Eyes: Denies: Eye discharge, Eye pain ENT: Reports: Congestion. Denies: Ear pain, Epistaxis Respiratory: Reports: Cough. Denies: Dyspnea Cardiovascular: Denies: Chest pain, Dyspnea on exertion Endocrine: Denies: Fatigue, Heat or cold intolerance Gastrointestinal: Reports: Nausea. Denies: Abdominal pain, Vomiting Genitourinary: Denies: Incontinence, Retention Musculoskeletal: Denies: Arthralgia, Back pain Skin: Denies: Bruising, Change in color Neurological: Denies: Abnormal gait, Confusion, Headache Psychiatric: Denies: Anxiety Hematological/Lymphatic: Reports: Anemia. 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 - GI Hx GI Disorders: Yes Hx Abdominal Pain: Yes Hx Reflux: Yes Hx Nausea/Vomiting: Yes - Hx Genitourinary Disorders: Yes Hx Kidney Stones: Yes - ENDOCRINE Hx Endocrine Disorders: No Hx Thyroid Disease: Yes - MUSCULOSKELETAL Hx Musculoskeletal Disorders: Yes Comment:: alberto-danlos collagen disorder - PSYCH Hx Psych Problems: No - HEMATOLOGY/ONCOLOGY Hx Hematology/Oncology Disorders: Yes Hx Anemia: Yes (controlled) Comment:: alberto danlos: collagen disorder Family Medical History Hx Cancer: Grandparents Physical Exam - General General Appearance: Alert, Oriented x3, Cooperative, No acute distress Limitations: No limitations - Head Head exam: Atraumatic, Normocephalic, Normal inspection Head exam detail: negative: Abrasion, Contusion, Aldrich's sign, General tenderness, Hematoma, Laceration - Eye Eye exam: Normal appearance. negative: Conjunctival injection, Periorbital swelling, Periorbital tenderness, Scleral icterus - ENT Ear exam: negative: Auricular hematoma, Auricular trauma Nasal Exam: Sinus tenderness (Maxillary sinus pressure bilaterally on examination). negative: Active bleeding, Discharge, Dried blood Mouth exam: Tongue elevation. negative: Drooling, Laceration, Muffled voice Throat exam: negative: Tonsillar erythema, Tonsillomegaly, Tonsillar exudate, R peritonsillar mass, L peritonsillar mass - Neck Neck exam: Normal inspection. negative: Meningismus, Tenderness - Respiratory Respiratory exam: Normal lung sounds bilaterally. negative: Respiratory distress, Rhonchi, Stridor, Wheezes - Cardiovascular Cardiovascular Exam: Regular rate, Normal rhythm, Normal heart sounds - GI/Abdominal GI/Abdominal exam: Soft. negative: Distended, Rebound, Rigid, Tenderness - Rectal Rectal exam: Deferred - exam: Deferred - Extremities Extremities exam: Other (Fracture boot LLE). negative: Calf tenderness, Pedal edema - Neurological Neurological exam: Alert, Normal gait, Oriented X3 - Psychiatric Psychiatric exam: Normal affect, Normal mood - Skin Skin exam: Normal color. negative: Abrasion Type of lesion: negative: abrasion Course - Reevaluation(s) Reevaluation #1: 07/07/19 18:10 Clinical examination appears c/w sinusitis Will treat with Bactrim per patient request as directed. Patient appears stable for discharge at this time. Disposition Disposition: Discharge Clinical Impression: Sinusitis Qualifiers: Sinusitis location: maxillary Chronicity: subacute Qualified Code(s): J01.00 - Acute maxillary sinusitis, unspecified Disposition: Home, Self-Care Condition: (2) Stable Instructions: Sinusitis (ED) Additional Instructions: Return to ED if your symptoms worsen or if you have any concerns. Bactrim as directed. Follow-up with Dr. Gupta in 3-5 days as directed. Prescriptions: Sulfamethoxazole/Trimethoprim [Bactrim Ds Tablet] 1 each PO BID #14 tablet Ondansetron [Zofran Odt] 4 mg PO Q8H PRN #15 tab.rapdis PRN Reason: Nausea/Vomiting Forms: Patient Portal Access Time of Disposition: 18:04 Quality - Quality Measures Quality Measures: N/A - Blood Pressure Screening Does Patient Have Any of the Following: No Blood Pressure Classification: Normal BP Reading Systolic Measurement: 114 Diastolic Measurement: 64 Screening for High Blood Pressure: < Normal BP, F/U Not Required > [G8783]
== END 2019-07-07 18:18 | disposition home or self-care (01) ==
LOC: ER 17:50
DX: J01.00 Acute maxillary sinusitis, unspecified (principal); J02.9 Acute pharyngitis, unspecified; R05 Cough
CPT/HCPCS: 99283